=== PATIENT | male | born 1975 | race Caucasian/White ===

== ENCOUNTER → 2017-08-07 | Outpatient (CLI) | payer MEDICARE, OTHER ==
[~2017-08-07] MED LIST: FLEXERIL 10 MG10 MG PO; FOLIC ACID 1 MG1 MG PO; IBUPROFEN400 MG PO
[2017-08-07 13:00] LABS: HEMOGLOBIN 16.4 gm/dl (14.0-17.5); RED BLOOD COUNT 5.32 M/UL (4.20-5.50)
[2017-08-07 13:21] LABS: BUN/CREATININE RATIO 13 (0-10)
== END ==
LOC: OPSV 12:18
PROVIDERS: Internal Medicine Infectious Disease
DX: A41.01 Sepsis due to Methicillin susceptible Staphylococcus aureus (principal); R91.8 Other nonspecific abnormal finding of lung field; B19.20 Unspecified viral hepatitis C without hepatic coma
CPT/HCPCS: 36415; 80053; 85025; 86140; G0463